=== PATIENT | male | born 2000 | race Caucasian/White ===

== ENCOUNTER 2024-05-26 14:43 | Emergency (ER) | payer OTHER ==
[~2024-05-26] VITALS: Ht 177.8 cm; Wt 72.8 kg
[2024-05-26 15:40] VITALS: BP 124/91
== END 2024-05-26 15:40 | disposition home or self-care (01) ==
LOC: ED 14:43
DX: S56.911A Strain of unspecified muscles, fascia and tendons at forearm level, right arm, initial encounter (principal); X50.1XXA Overexertion from prolonged static or awkward postures, initial encounter
CPT/HCPCS: 99283